=== PATIENT | male | born 1985 | race Caucasian/White ===

== ENCOUNTER 2022-06-05 18:45 | Inpatient (IN) | payer OTHER ==
[~2022-06-05] VITALS: Ht 185.4 cm; Wt 72.6 kg
[2022-06-05] MEDS ORDERED: IBUP-1953 PO (19:59)
[2022-06-05] MEDS ORDERED: HYDR-4303 PO (19:59)
[2022-06-05] MEDS ORDERED: CYCL5TAB PO (19:59)
[2022-06-05 20:16] VITALS: BP 123/80
--- NOTE | 2022-06-05 20:19 | NUR ---
RN OPENING NOTE PATIENT HANDED OFF TO ME BY CARLEY DAY SHIFT RN. PATIENT IS AWAKE IN BED. A/OX4. NO S/S OF DISTRESS, BREATHING WITHOUT DIFFICULTY ON ROOM AIR. [facility] #20 INTACT AND PATENT. SAFETY MEASURES IN PLACE: BED LOCKED IN PLACE AND AT LOWEST POSITION, RAILS UP X2, CALL [facility] WITHIN REACH. PATIENT WAS BROUGHT TO UNIT VIA EMS BY [facility]YN A DIRECT ADMIT FROM [facility]. PATIENT WAS ORIENTED TO THE UNIT; GIVEN CALL [facility] AND INSTRUCTED ON ITS USE. ALL BELONGINGS ACCOUNTED FOR, LOGGED INTO SHEET, AND PLACED IN CHART. PATIENT IS STABLE; WILL CONTINUE TO MONITOR PATIENT.
[2022-06-05] MEDS ORDERED: MAG HYDROX/AL HYDROX/SIMETH 30 ML UDC PO PRN (21:00)
[2022-06-05] MEDS ORDERED: HYDROCODONE/APAP 5/325MG TABLET PO PRN (21:00)
[2022-06-05] MEDS ORDERED: MAGNESIUM HYDROXIDE 30 ML UDC PO PRN (21:00)
[2022-06-05] MEDS ORDERED: Z GUARD REMEDY 4 OZ OINT TP PRN (21:00)
[2022-06-05] MEDS ORDERED: IV NS 0.9% 1,000 ML IV PRN (21:00)
[2022-06-05] MEDS ORDERED: METRONIDAZOLE 500MG/ NS 100ML 500 MG in PREMIX 1 EA IV SCH (21:00)
[2022-06-05] MEDS ORDERED: ACETAMINOPHEN 325 MG TABLET PO PRN (21:00)
[2022-06-05] MEDS ORDERED: ONDANSETRON HCL/PF 4 MG/2 ML VIAL IVP PRN (21:00)
[2022-06-05] MEDS ORDERED: DOXYCYCLINE 100 MG in IV D5W 100 ML IV SCH (21:00)
[2022-06-05 21:16] LABS: BASOPHILS % (AUTO) 0.2 % (0.0-2.0); EOSINOPHILS % (AUTO) 1.6 % (0.0-6.0); HEMATOCRIT 37 % (39-51); HEMOGLOBIN 12.3 g/dL (13.5-17.5); LYMPHOCYTES # (AUTO) 0.9 K/uL (0.8-4.8); LYMPHOCYTES % (AUTO) 8.9 % (20.0-44.0); MEAN CORPUSCULAR HGB CONC 33 g/dl (31.0-36.0); MEAN CORPUSCULAR VOLUME 89 fL (80-96); MONOCYTES # (AUTO) 1.7 K/uL (0.1-1.30); MONOCYTES % (AUTO) 16.8 % (2.0-12.0); NEUTROPHILS # (AUTO) 7.4 K/uL (1.8-8.9); NEUTROPHILS % (AUTO) 72.5 % (43.0-81.0); PLATELET COUNT (AUTO) 283 K/uL (150-450); RED BLOOD CELL COUNT(AUTO) 4.16 MIL/uL (4.5-6.0); WHITE BLOOD COUNT (AUTO) 10.2 K/uL (4.3-11.0)
[2022-06-05 21:37] LABS: CALCIUM, SERUM 8.6 mg/dL (8.5-10.1)
[2022-06-05 21:45] LABS: ALBUMIN 2.6 g/dL (3.4-5.0); BILIRUBIN,DIRECT 0.2 mg/dL (0.0-0.2); BILIRUBIN,TOTAL 0.5 mg/dL (0.2-1.0); MAGNESIUM 1.9 mg/dL (1.8-2.4); TOTAL PROTEIN, SERUM 6.2 g/dL (6.4-8.2)
[2022-06-05] MEDS: IBUPROFEN 400 MG TABLET PO SCH (22:06)
[2022-06-05 22:15] LABS: BAND % (MANUAL) 3 % (0.0-5.0); EOSINOPHILS % (MANUAL) 1 % (0-4); LYMPHOCYTES % (MANUAL) 8 % (16-48); MONOCYTES % (MANUAL) 10 % (0-11.0); NEUTROPHILS % (MANUAL) 78 (42-76)
[2022-06-06] MEDS: IBUPROFEN 400 MG TABLET PO SCH (01:00)
--- NOTE | 2022-06-06 02:15 | NUR ---
RN NOTE PATIENT LEFT AMA. PATIENT EDUCATED ON HEALTH RISKS OF LEAVING AMA. PATIENT ACKNOWLEDGED. ON-CALL MAURICIO PEREZ, NOTIFIED. ID BAND REMOVED, IV ACCESS REMOVED, PRESSURE DRESSING APPLIED. BELONGINGS ACCOUNTED FOR AND RETURNED TO PATIENT.
[2022-06-06] MEDS ORDERED: PANTOPRAZOLE 40 MG TABLET.DR PO SCH (07:30)
== END 2022-06-06 02:25 | disposition left against medical advice (07) | DRG 383 ==
LOC: MED 18:45
PROVIDERS: ADMIT Registered Nurse; ATTEND Registered Nurse
DX: L03.211 Cellulitis of face (principal); J34.89 Other specified disorders of nose and nasal sinuses; K05.219 Aggressive periodontitis, localized, unspecified severity; Z53.29 Procedure and treatment not carried out because of patient's decision for other reasons
CPT/HCPCS: 36415; 80053-TC; 80076-TC; 83605-TC; 83735-TC; 84100-TC; 85025-TC; 87081-TC; A4216; G0378; J3490; J7030; J7060